=== PATIENT | female | born 1965 | race Two or more races ===

== ENCOUNTER 2018-04-10 06:56 | Day surgery (SDC) | payer OTHER ==
[~2018-04-10] VITALS: Ht 149.9 cm; Wt 67.6 kg
[2018-04-10 07:21] VITALS: BP 138/76
[2018-04-10 09:10] LABS: CALCIUM 9.1 mg/dL (8.5-10.1); CARBON DIOXIDE 29.1 mmol/L (21-32); CHLORIDE SERUM 106 mmol/L (98-107); CREATININE SERUM 0.6 mg/dL (0.6-1.0); GFR1 > 60 mL/min; GLUCOSE SERUM 104 mg/dL (74-106); POTASSIUM SERUM 4.6 mmol/L (3.5-5.1); SODIUM SERUM 142 mmol/L (136-145)
[2018-04-10 14:47] VITALS: BP 125/57
== END 2018-04-10 12:15 | disposition home or self-care (01) ==
LOC: DS 06:56 → OR 09:00 → DS 12:15
PROVIDERS: Anesthesiology
DX: N84.0 Polyp of corpus uteri (principal); F17.210 Nicotine dependence, cigarettes, uncomplicated; Z98.890 Other specified postprocedural states; Z98.51 Tubal ligation status; Z79.899 Other long term (current) drug therapy; Z72.89 Other problems related to lifestyle
CPT/HCPCS: J0690; J2250